=== PATIENT | male | born 1985 | race Caucasian/White ===

== ENCOUNTER 2017-03-11 11:57 | Emergency (ER) | payer BC ==
[2017-03-11 12:13] VITALS: TEMP 98.4
--- NOTE | 2017-03-11 13:22 | UCPHY ---
H & P Time Seen by Provider: 03/11/17 12:40 Patient Type: New HPI/ROS: 31-year-old male states he twisted his back and now has left lower back pain radiating to his left buttock states he has done this before, he denies a particular injury. Does work that requires a lot of bending and lifting and believes that may have contributed to this. Review of systems As per HPI General no fever no chills no weakness HEENT no eye pain no eye discharge. No eye redness, no sore throat Respiratory no cough, no shortness of breath Cardiac no chest pain, no peripheral edema GI no abdominal pain, no diarrhea, no constipation, no nausea, no vomiting no flank pain, no hematuria, no dysuria Musculoskeletal positive myalgias, no joint pain, positive lower back pain Heme no easy bruising, no easy bleeding Endo no polyuria, no polydipsia Skin no rashes, no pruritus Neuro no syncope, no dizziness, no headaches Psych is no suicidal ideation, no homicidal ideation Past Medical/Surgical History: History of lower back pain Social History: Denies excessive drug or alcohol use Smoking Status: Never smoked Physical Exam: 31-year-old male alert and oriented in moderate distress secondary to left lower back pain, afebrile HEENT atraumatic normocephalic, extraocular muscles intact, anicteric Oropharynx negative for erythema negative exudate, tolerating her own secretions Neck supple no meningismus Lungs clear to auscultation bilaterally Heart regular rate and rhythm without murmur rub or gallop Abdomen nondistended normoactive bowel sounds soft nontender Back no CVA tenderness, no step-offs, no spinal tenderness, left paralumbar back tenderness and spasm No ecchymosis no rash Extremities no cyanosis clubbing or edema Neuro alert and oriented, no focal deficits Constitutional: Initial Vital Signs Temperature (C) 36.9 C 03/11/17 12:08 Heart Rate 75 03/11/17 12:08 Respiratory Rate 14 03/11/17 12:08 Blood Pressure 120/61 03/11/17 12:08 O2 Sat (%) 97 03/11/17 12:08 O2 Delivery Mode Room Air Allergies/Adverse Reactions: No Known Allergies Allergy (Unverified 03/11/17 12:05) Home Medications: Medication Instructions Recorded Hydrocodone/Acetaminophen [Avon 1 - 2 tab PO Q6H PRN #16 tab 03/11/17 5/325 (*)] Methocarbamol [Robaxin-750] 750 mg PO TID PRN #18 tablet 03/11/17 methylPREDNISolone [Medrol Dose 1 each PO AD #1 ea 03/11/17 Joaquin] Medical Decision Making ED Course/Re-evaluation: Patient seen and evaluated for left lower back pain radiating to left buttock. Differential diagnosis Lumbar strain, sciatica, lumbar strain with sciatica, disc herniation, pyelonephritis Physical exam consistent with lumbar strain with sciatica Impression Left lower paralumbar back strain/pain with sciatica, possible lumbar disc herniation Plan Medrol Dosepak Short-term muscle relaxant-methocarbamol, and hydrocodone Advised patient to follow up with primary care physician Departure - Departure Disposition: Home, Routine, Self-Care Clinical Impression: Left-sided low back pain with sciatica Condition: Good Instructions: Sciatica (ED), Low Back Strain (ED) Referrals: NONE *PRIMARY CARE P,. [Primary Care Provider] - As per Instructions Prescriptions: Hydrocodone/Acetaminophen [Avon 5/325 (*)] 1 - 2 tab PO Q6H PRN #16 tab PRN Reason: Pain, Moderate Methocarbamol [Robaxin-750] 750 mg PO TID PRN #18 tablet PRN Reason: Spasms methylPREDNISolone [Medrol Dose Joaquin] 1 each PO AD #1 ea - PQRS PQRS Measurement: na
[2017-03-11 13:35] VITALS: BP 122/62; PULSE 85; RESP 18; O2SAT 96
== END 2017-03-11 13:33 | disposition home or self-care (01) ==
LOC: CED 11:57
DX: M54.32 Sciatica, left side (principal)
CPT/HCPCS: G0463-PO